=== PATIENT | female | born 1985 | race African-American/Black ===

== ENCOUNTER → 2016-07-31 | Outpatient (CLI) | payer OTHER ==
[~2016-07-31] VITALS: Ht 157.5 cm; Wt 61.2 kg
[~2016-07-31] MED LIST: MIREIUD IU; NS 1,000 ML IV SCH; PROPOFOL 200 MG/20 ML VIAL As Ordered ONE
--- NOTE | 2016-07-31 14:42 | ROOR ---
Patient Name: Lou Bradley Procedure Date: 07/31/2016 2:23 PM Date of : 1985 Age: 31 Room: [facility] Gender: Female Note Status: Finalized Procedure: Flexible Sigmoidoscopy Indications: High risk colon cancer surveillance: Personal history of adenoma with villous component, 1.5 - 2 cm prolapsing anal/rectal polyp (villous adenoma PLUS squamous dysplasia)--removed ~1 year ago Providers: Gilberto GODINEZ MD Referring MD: HUANG Strong Requesting Provider: Medicines: Monitored Anesthesia Care Complications: No immediate complications. Procedure: Pre-Anesthesia Assessment: - The heart rate, respiratory rate, oxygen saturations, blood pressure, adequacy of pulmonary ventilation, and response to care were monitored throughout the procedure. The Colonoscope was introduced through the anus and advanced to 20 cm from the anal verge. The flexible sigmoidoscopy was accomplished without difficulty. The patient tolerated the procedure well. The quality of the bowel preparation was good. Findings: The perianal and digital rectal examinations were normal. One 6 mm mucosal nodule was found in the distal rectum. Biopsies were taken with a cold forceps for histology. Impression: - Mucosal nodule/scar in the distal rectum- (I suspect this is small residual stalk of previously removed polyp). Biopsied. Recommendation: - Await pathology results. - Telephone endoscopist for pathology results in 1 week. - further recommendations depend on pathology report. (If pathology is completely benign, then follow up for repeat anoscopy/proctoscopy in 1 year. If pathology shows residual polyp tissue, then you will need referral to surgeon to remove.) Gilberto Godinez MD Gilberto GODINEZ MD 07/31/2016 2:41:56 PM This report has been signed electronically. Number of Addenda: 0 Note Initiated On: 07/31/2016 2:23 PM Estimated Blood Loss: Estimated blood loss: none.
[2016-07-31 14:55] VITALS: BP 116/63
== END | disposition home or self-care (01) ==
LOC: M OPP 12:28
PROVIDERS: ATTEND Internal Medicine Gastroenterology
DX: Z09 Encounter for follow-up examination after completed treatment for conditions other than malignant neoplasm (principal); K62.89 Other specified diseases of anus and rectum; Z86.010 Personal history of colon polyps; Z79.899 Other long term (current) drug therapy; Z80.0 Family history of malignant neoplasm of digestive organs; Z80.6 Family history of leukemia